=== PATIENT | male | born 1950 | race Caucasian/White ===

== ENCOUNTER → 2019-05-04 09:24 | Outpatient (BNVA) | payer MEDICARE, OTHER, SELFPAY | PROVIDERS: Visit Provider Family Medicine | DX: E78.2 Mixed hyperlipidemia (principal); E03.9 Hypothyroidism, unspecified; I10 Essential (primary) hypertension | CPT/HCPCS: 80053; 80061; 84443; 85025 ==

== ENCOUNTER → 2020-01-13 11:04 | Outpatient (BNVA) | payer MEDICARE, OTHER, SELFPAY | PROVIDERS: PCP Family Medicine; Visit Provider Nurse Practitioner Family | DX: Z11.59 Encounter for screening for other viral diseases (principal); Z20.828 Contact with and (suspected) exposure to other viral communicable diseases; J06.9 Acute upper respiratory infection, unspecified | CPT/HCPCS: 87635 ==

== ENCOUNTER → 2020-04-06 11:09 | Outpatient (BNVA) | payer MEDICARE, OTHER, SELFPAY | PROVIDERS: PCP Family Medicine; Visit Provider Family Medicine | DX: E78.2 Mixed hyperlipidemia (principal); I10 Essential (primary) hypertension; E03.9 Hypothyroidism, unspecified | CPT/HCPCS: 80053; 80061; 84443; 85025 ==

== ENCOUNTER → 2020-06-09 09:33 | Outpatient (BNVA) | payer MEDICARE, OTHER, SELFPAY | PROVIDERS: PCP Family Medicine; Visit Provider Family Medicine | DX: Z12.5 Encounter for screening for malignant neoplasm of prostate (principal); E03.9 Hypothyroidism, unspecified | CPT/HCPCS: 84443; G0103 ==

== ENCOUNTER → 2020-10-25 11:29 | Outpatient (BNVA) | payer MEDICARE, OTHER, SELFPAY | PROVIDERS: PCP Family Medicine; Visit Provider Family Medicine | DX: E03.9 Hypothyroidism, unspecified (principal); E78.2 Mixed hyperlipidemia; I10 Essential (primary) hypertension | CPT/HCPCS: 80053; 80061; 84443; 85025 ==

== ENCOUNTER → 2021-04-03 11:50 | Outpatient (BNVA) | payer OTHER, MEDICARE, SELFPAY | PROVIDERS: PCP Family Medicine; Visit Provider Family Medicine | DX: E78.2 Mixed hyperlipidemia (principal); E03.9 Hypothyroidism, unspecified; I10 Essential (primary) hypertension | CPT/HCPCS: 80053; 80061; 84443; 85025 ==

== ENCOUNTER → 2021-10-17 09:02 | Outpatient (BNVA) | payer OTHER, SELFPAY | PROVIDERS: PCP Family Medicine; Visit Provider Nurse Practitioner Family | DX: E78.2 Mixed hyperlipidemia (principal); E03.9 Hypothyroidism, unspecified; I10 Essential (primary) hypertension; R73.9 Hyperglycemia, unspecified; Z12.5 Encounter for screening for malignant neoplasm of prostate | CPT/HCPCS: 80053; 80061; 83036; G0103 ==

== ENCOUNTER 2022-04-13 11:33 | Emergency (ER) | payer MEDICARE, OTHER, SELFPAY ==
[2022-04-13 11:53] VITALS: BP 156/83; PULSE 81; RESP 16; TEMP 36.4; O2SAT 95
--- NOTE | 2022-04-13 12:36 | ED_ITS ---
HPI - Abdominal Pain General: Chief Complaint: Abdominal Pain Stated Complaint: abd pains and into lower back Time Seen by Provider: 04/13/22 12:28 History of Present Illness: 72-year-old male presents with just some not feeling good he reports he is got some abdominal discomfort but not really pain. A little bit of pain in his back more on the right than left. Reports he is cannot get comfortable. Has some nausea no vomiting or diarrhea. Reports that his throat her voice seems a little bit hoarse and just started. He denies any cough, shortness of breath, chest pain, fever. Associated Symptoms: Reports nausea; Denies constipation, diarrhea, dysuria, fever(s) and vomiting Review of Systems Const: Reports: malaise; Denies: fever(s) or fatigue ENMT: Reports: hoarseness; Denies: throat pain or ear or mastoid pain Card: Denies: chest pain, palpitations, irregular heart rhythm or lightheadedness Resp: Denies: dyspnea, productive cough or wheezing GI: Reports: nausea; Denies: abdominal pain, vomiting, diarrhea or constipation : Reports: flank pain; Denies: difficulty urinating, dysuria or urinary frequency Musc: Denies: neck pain Skin/Breast: Denies: rash or pruritus PFSH ED PFSH: Medical History 10 year risk of [place] or stroke 7.5% or greater calculates to 34%, high intensity statin recommended for risk reduction Acquired hypothyroidism Elevated LFTs Encounter for counseling for care management of patient with chronic conditions and complex health needs using nurse-based model Essential (primary) hypertension Fatty infiltration of liver Gall bladder polyp Hx of colonic polyps Mixed hyperlipidemia Stasis dermatitis of both legs Surgical History Hx of circumcision Hx of colonoscopy repeat 10 yrs Hx of cystoscopy Hx of hernia repair was an Hx of tonsillectomy Family History Family/Other Diabetes Stroke Glaucoma Hearing loss Social History Smoking and tobacco status: former smoker Alcohol intake: current Alcohol intake frequency: few times a month Lives independently: Yes Household members: spouse Housing: House Marital status: Current occupational status: retired History of recent travel: No Current gender identity: Male Physical Exam Const: COMMON NORMALS: no acute distress, patient oriented x3, no limitations and alert HENMT: COMMON NORMALS: hearing grossly normal bilaterally and moist oral mucous membranes Resp: COMMON NORMALS: normal respiratory effort, No retractions, No use of accessory muscles and clear to auscultation bilaterally AUSCULTATION: clear to auscultation bilaterally Cardio: COMMON NORMALS: regular rate, regular rhythm and Peripheral pulses 2+ throughout RATE: regular rate RHYTHM: regular rhythm PERIPHERAL PULSES: Peripheral pulses 2+ throughout GI: COMMON NORMALS: Soft to palpation and non-tender PALPATION: Yes Soft to palpation : BLADDER/KIDNEY EXAM: Yes CVA tenderness on the right (minimal ) Back/Pelvis: GENERAL BACK: Yes CVA tenderness Neuro: COMMON NORMALS: patient oriented x3, moves all extremities, no focal motor deficits and no sensory deficits noted SENSORIUM/ORIENTATION: Yes alert Psych: COMMON NORMALS: mental status grossly normal, Normal thought process present, normal affect and speech normal SPEECH: Yes normal speech THOUGHT PROCESS: Normal thought process present Course Vital Signs: Vital signs: Vital Signs Temperature 97.6 F 04/13/22 11:53 Pulse Rate 78 04/13/22 15:10 Respiratory Rate 14 04/13/22 15:10 Blood Pressure 157/73 04/13/22 15:10 Pulse Oximetry 95 04/13/22 15:10 Oxygen Delivery Me thod 04/13/22 13:56 MDM - Abdominal Pain Medical Decision Making Patient with elevated AST and ALT that is new. Patient's abdominal ultrasound shows some hepatic stenosis so small gallstones but no significant gallbladder disease. There is some mild sludge. He had normal alk phos, normal bilirubin and normal lipase. Patient is likely of viral hepatitis. He is negative for any hepatitis A, B or C. Patient with minimal elevated white count. Patient with no abdominal tenderness. I discussed with him the need to follow-up with his primary care provider next week for recheck of his labs and further evaluation as needed. Patient stable and discharged home Lab Data 04/13/22 12:45 04/13/22 12:45 Labs/Radiology: Radiology Impressions Abdomen Ultrasound 04/13/22 13:21 IMPRESSION: 1. Small gallstones and sludge in gallbladder 2. Hepatic steatosis 3. Normal right kidney Laboratory Results WBC 12.8 10^3/uL (4.0-10.0) H 04/13/22 12:45 RBC 4.78 10^6/uL (4.1-5.3) 04/13/22 12:45 Hgb 15.2 g/dL (11.7-16.6) 04/13/22 12:45 Hct 44.1 % (42.0-52.0) 04/13/22 12:45 MCV 92.3 fl (80-94) 04/13/22 12:45 MCH 31.8 pg (28.0-34.0) 04/13/22 12:45 MCHC 34.5 g/dL (30.0-36.0) 04/13/22 12:45 RDW 12.7 % (12.1-15.1) 04/13/22 12:45 Plt Count 362 10^3/cmm (130-400) 04/13/22 12:45 MPV 10.8 fL (7.4-10.4) H 04/13/22 12:45 Neut % (Auto) 85.5 % 04/13/22 12:45 Lymph % (Auto) 9.3 % 04/13/22 12:45 Jackson % (Auto) 4.4 % 04/13/22 12:45 Eos % (Auto) 0.0 % 04/13/22 12:45 Baso % (Auto) 0.5 % 04/13/22 12:45 Neut # (Auto) 10.95 10^3/uL (1.8-7.7) H 04/13/22 12:45 Lymph # (Auto) 1.2 10^3/uL (0.8-4.8) 04/13/22 12:45 Jackson # (Auto) 0.6 10^3/uL (0.2-0.9) 04/13/22 12:45 Eos # (Auto) 0.0 10^3/uL (0.0-0.8) 04/13/22 12:45 Baso # (Auto) 0.1 10^3/uL (0.0-0.1) 04/13/22 12:45 Nucleated RBC % (auto) 0 % 04/13/22 12:45 Nucleated RBCs # 0.0 /100WBC 04/13/22 12:45 Sodium 137 mmol/L (136-145) 04/13/22 12:45 Potassium 3.7 mmol/L (3.5-5.1) 04/13/22 12:45 Chloride 95 mmol/L (98-107) L 04/13/22 12:45 Carbon Dioxide 27 mmol/L (22-29) 04/13/22 12:45 Anion Gap 18.7 (5-19) 04/13/22 12:45 BUN 16 mg/dL (8-23) 04/13/22 12:45 Creatinine 0.7 mg/dL (0.7-1.2) 04/13/22 12:45 GFR Calculation 111.5 mL/min (90-130) 04/13/22 12:45 Glucose 251 mg/dL (65-115) H 04/13/22 12:45 Calculated Osmolality 294 mOsm/kg (285-295) 04/13/22 12:45 Calcium 9.5 mg/dL (8.5-10.5) 04/13/22 12:45 Total Bilirubin 1.2 mg/dL (0.15-1.2) 04/13/22 12:45 AST 550 U/L (0-40) H 04/13/22 12:45 ALT 469 U/L (0-41) H 04/13/22 12:45 Alkaline Phosphatase 106 U/L (40-130) 04/13/22 12:45 C-Reactive Protein 3.0 mg/L (0.0-4.9) 04/13/22 12:45 Total Protein 8.1 g/dL (6.6-8.7) 04/13/22 12:45 Albumin 4.8 g/dL (3.5-5.2) 04/13/22 12:45 Globulin 3.3 g/dL (1.3-4.6) 04/13/22 12:45 Lipase 25 U/L (13-60) 04/13/22 12:45 Urine Color Dark yellow (Yellow) 04/13/22 14:28 Urine Appearance Clear (CLEAR) 04/13/22 14: Urine pH 8 (5-7) H 04/13/22 14: Ur Specific [place] 1.015 (1.005-1.030) 04/13/22 14:28 Urine Protein Neg (Negative) 04/13/22 14:28 Urine Glucose (UA) 2+ (Normal) H 04/13/22 14:28 Urine Ketones Negative (Negative) 04/13/22 14:28 Urine Blood Neg (Negative) 04/13/22 14:28 Urine Nitrate Negative (Negative) 04/13/22 14:28 Urine Bilirubin Neg (Negative) 04/13/22 14:28 Prot Sulfosalicylic Acd Negative (Negative) 04/13/22 14:28 Urine Urobilinogen Norm mg/dL (Negative) 04/13/22 14:28 Ur Leukocyte Esterase Negative (Negative) 04/13/22 14:28 Hepatitis A IgM Ab Non-reactive (Nonreactive) 04/13/22 12:45 Hep Bs Antigen Non-reactive (Nonreactive) 04/13/22 12:45 Hep Bs Antibody 3.5 (11.5-1000) L 04/13/22 12:45 Hep B Core Total Ab Non-reactive (Nonreactive) 04/13/22 12:45 Hepatitis C Antibody Non-reactive (Nonreactive) 04/13/22 12:45 Influenza Type A Ag negative (Negative) 04/13/22 12:50 Influenza Type B Ag negative (Negative) 04/13/22 12:50 SARS-CoV-2 Ag (Rapid) negative (Negative) 04/13/22 12:50 Discharge Plan Discharge Patient Disposition: Home Clinical Impression: Liver enzyme elevation Condition: Stable Prescriptions: New ondansetron 4 mg tablet,disintegrating 4 mg PO TID PRN (Reason: nausea and vomiting) Qty: 20 0RF No Action amlodipine 10 mg tablet 10 mg PO DAILY Qty: 90 2RF atorvastatin 40 mg tablet 40 mg PO DAILY Qty: 90 2RF levothyroxine 175 mcg tablet 175 mcg PO DAILY Qty: 90 2RF lisinopril-hydrochlorothiazide 20-12.5 mg tablet 2 tab PO DAILY Qty: 180 2RF Discharge Orders: Discharge ED (Routine); Ordered 04/13/22 Ordered By: Ric Floyd Referrals: Jaymie Márquez MD [Primary Care Provider] - Discharge Diet: Usual diet Discharge Activity: Resume usual activity Patient Instructions: Opioid Safety, Pain Management, Viral Syndrome - Adult Activity Restrictions/Additional Instructions: Please follow-up with your primary care provider next week for recheck of your liver enzymes. Return to the ER with any concerns. Please do not use Tylenol until your liver enzymes are back to normal. If you develop worsening abdominal pain intractable nausea or vomiting please return to the ER. Coding Level of Care Code ED [employer] for Jacqueline Yang Exam Comprehensive
[2022-04-13 12:57] LABS: Basophils # 0.1 10^3/uL (0.0-0.1); Basophils % 0.5 %; Hematocrit 44.1 % (42.0-52.0); Hemoglobin 15.2 g/dL (11.7-16.6); Lymphocytes # 1.2 10^3/uL (0.8-4.8); Lymphocytes % 9.3 %; Mean Corpuscular HGB Conc 34.5 g/dL (30.0-36.0); Mean Corpuscular Hemoglobin 31.8 pg (28.0-34.0); Mean Corpuscular Volume 92.3 fl (80-94); Mean Platelet Volume 10.8 fL (7.4-10.4); Monocytes # 0.6 10^3/uL (0.2-0.9); Monocytes % 4.4 %; Neutrophils # 10.95 10^3/uL (1.8-7.7); Neutrophils % 85.5 %; Nucleated Red Blood Cells % 0 %; Platelet Count 362 10^3/cmm (130-400); Red Blood Count 4.78 10^6/uL (4.1-5.3); Red Cell Distribution Width 12.7 % (12.1-15.1); White Blood Count 12.8 10^3/uL (4.0-10.0)
[2022-04-13] MEDS: ketorolac 30 mg/mL INJ IVP (13:01)
[2022-04-13] MEDS: metoclopramide 5 mg/mL SDV 2 mL IVP (13:01)
[2022-04-13 13:18] LABS: Alanine Aminotransferase 469 U/L (0-41); Albumin Level 4.8 g/dL (3.5-5.2); Alkaline Phosphatase 106 U/L (40-130); Anion Gap 18.7 (5-19); Aspartate Amino Transferase 550 U/L (0-40); Blood Urea Nitrogen 16 mg/dL (8-23); Calcium 9.5 mg/dL (8.5-10.5); Carbon Dioxide 27 mmol/L (22-29); Chloride 95 mmol/L (98-107); Globulin 3.3 g/dL (1.3-4.6); Glomerular Filtration Rate 111.5 mL/min (90-130); Glucose 251 mg/dL (65-115); Lipase 25 U/L (13-60); Osmolality Calculated 294 mOsm/kg (285-295); Potassium 3.7 mmol/L (3.5-5.1); Sodium 137 mmol/L (136-145); Total Bilirubin 1.2 mg/dL (0.15-1.2); Total Protein 8.1 g/dL (6.6-8.7)
--- NOTE | 2022-04-13 13:21 | USR_ITS ---
PROCEDURE INFORMATION: Exam: US Abdomen, Limited; Right Upper Quadrant Exam date and time: 04/13/2022 2:00 PM Age: 72 years old Clinical indication: Abdominal pain; Acute; Additional info: Gallbladder, liver TECHNIQUE: Imaging protocol: Real time ultrasound of the abdomen with image documentation. Limited exam focused on the right upper quadrant. COMPARISON: US gall bladder [id number] 05/29/2018 10:12 AM FINDINGS: Liver: Diffuse increased echogenicity is seen consistent with hepatic steatosis. No masses. Gallbladder: Multiple small gallstones. There is a small volume of gallbladder sludge present. GB wall measures 2.4 mm . Biliary ducts: Normal. No stones. No dilation. Pancreas: Visualized pancreas is unremarkable. Right kidney: Normal. No mass. No hydronephrosis. 11.6 cm x 5.4 cm x 6.6 cm . Aorta: Abdominal aorta and IVC are unremarkable US/US abdomen limited [id number] IMPRESSION: 1. Small gallstones and sludge in gallbladder 2. Hepatic steatosis 3. Normal right kidney
[2022-04-13 13:40] LABS: Influenza A by IFA negative (Negative); Influenza B by IFA negative (Negative); SARS Covid-2 Antigen negative (Negative)
[2022-04-13 13:56] VITALS: BP 152/77; PULSE 81; RESP 14; O2SAT 97
[2022-04-13 14:11] LABS: Hepatitis A Antibody IgM Non-Reactive (Nonreactive); Hepatitis B Core AB, Total Non-Reactive (Nonreactive); Hepatitis B Surface AB 3.5 (11.5-1000); Hepatitis B Surface Antigen Non-Reactive (Nonreactive); Hepatitis C Virus Antibody Non-Reactive (Nonreactive)
[2022-04-13 15:05] LABS: Add Urine Microscopic? NO; Charge for UA Resulting for Rev
[2022-04-13 15:09] LABS: Protein Urine Neg (Negative); Specific Gravity, Urine 1.015 (1.005-1.030); Urine Appearance Clear (CLEAR); Urine Color Dark Yellow (Yellow); pH Urine 8 (5-7)
[2022-04-13 15:10] VITALS: BP 157/73; PULSE 78; RESP 14; O2SAT 95
[2022-04-13 15:10] LABS: Bilirubin Urine Neg (Negative); Blood Urine Neg (Negative); Glucose Urine UA 2+ (Normal); Ketones Urine Negative (Negative); Leukocyte Esterase Urine Negative (Negative); Nitrate Urine Negative (Negative); Sulfosalicylic Acid Urine Negative (Negative); Urobilinogen Urine Norm (Negative)
== END 2022-04-13 15:42 | disposition home or self-care (01) ==
PROVIDERS: Emergency Provider Student in an Organized Health Care Education/Training Program; PCP Family Medicine
DX: R74.8 Abnormal levels of other serum enzymes (principal); Z20.822 Contact with and (suspected) exposure to COVID-19; K80.20 Calculus of gallbladder without cholecystitis without obstruction; I10 Essential (primary) hypertension; E78.2 Mixed hyperlipidemia; Z87.891 Personal history of nicotine dependence
CPT/HCPCS: 76705; 80053; 81003; 83690; 85025; 86140; 86705; 86706; 86709; 86803; 87340; 87426; 87804; 96374; 96375; 99285; J1885; J2765

== ENCOUNTER → 2022-04-19 10:08 | Outpatient (BNVA) | payer MEDICARE, OTHER, SELFPAY | PROVIDERS: PCP Family Medicine; Visit Provider Family Medicine | DX: I10 Essential (primary) hypertension (principal); R73.9 Hyperglycemia, unspecified; E03.9 Hypothyroidism, unspecified; E78.2 Mixed hyperlipidemia; R74.8 Abnormal levels of other serum enzymes | CPT/HCPCS: 80053; 80061; 83036; 84443; 85025 ==

== ENCOUNTER → 2022-07-23 11:19 | Outpatient (BNVA) | payer MEDICARE, OTHER, SELFPAY | PROVIDERS: PCP Family Medicine; Visit Provider Family Medicine | DX: I10 Essential (primary) hypertension (principal); E03.9 Hypothyroidism, unspecified; E78.2 Mixed hyperlipidemia; R73.9 Hyperglycemia, unspecified | CPT/HCPCS: 80053; 80061; 83036; 84443; 85025 ==

== ENCOUNTER → 2022-12-24 11:29 | Outpatient (BNVA) | payer MEDICARE, OTHER, SELFPAY | PROVIDERS: PCP Family Medicine; Visit Provider Family Medicine | DX: E03.9 Hypothyroidism, unspecified (principal); E78.2 Mixed hyperlipidemia; I10 Essential (primary) hypertension; Z12.5 Encounter for screening for malignant neoplasm of prostate | CPT/HCPCS: 80053; 80061; 84443; 85025; G0103 ==

== ENCOUNTER → 2023-06-24 10:26 | Outpatient (BNVA) | payer MEDICARE, OTHER, SELFPAY | PROVIDERS: PCP Family Medicine; Visit Provider Family Medicine | DX: I10 Essential (primary) hypertension (principal); E78.2 Mixed hyperlipidemia; E03.9 Hypothyroidism, unspecified | CPT/HCPCS: 80053; 80061; 84443; 85025 ==

== ENCOUNTER → 2023-06-30 16:08 | Outpatient (BNVA) | payer MEDICARE, OTHER, SELFPAY | PROVIDERS: PCP Family Medicine; Visit Provider Family Medicine | DX: R73.9 Hyperglycemia, unspecified (principal) | CPT/HCPCS: 83036; 85025 ==

== ENCOUNTER → 2023-07-03 09:54 | Outpatient (BNVA) | payer MEDICARE, OTHER, SELFPAY | PROVIDERS: PCP Family Medicine; Visit Provider Family Medicine | DX: R73.9 Hyperglycemia, unspecified (principal) | CPT/HCPCS: 83036 ==

== ENCOUNTER → 2023-08-05 15:07 | Outpatient (BNVA) | payer MEDICARE, OTHER, SELFPAY | PROVIDERS: PCP Family Medicine; Visit Provider Family Medicine | DX: R53.83 Other fatigue (principal) | CPT/HCPCS: 82607; 83540; 84403; 85025 ==

== ENCOUNTER → 2023-10-22 14:50 | Outpatient (BNVA) | payer MEDICARE, OTHER, SELFPAY | PROVIDERS: PCP Family Medicine; Visit Provider Nurse Practitioner Family | DX: R50.9 Fever, unspecified (principal) | CPT/HCPCS: 87426 ==

== ENCOUNTER → 2024-01-15 11:20 | Outpatient (BNVA) | payer MEDICARE, OTHER, SELFPAY | PROVIDERS: PCP Family Medicine; Visit Provider Family Medicine | DX: E11.9 Type 2 diabetes mellitus without complications (principal) | CPT/HCPCS: 80048; 83036 ==

== ENCOUNTER → 2024-04-16 10:44 | Outpatient (BNVA) | payer MEDICARE, OTHER, SELFPAY | PROVIDERS: PCP Family Medicine; Visit Provider Family Medicine | DX: E11.9 Type 2 diabetes mellitus without complications (principal); R79.89 Other specified abnormal findings of blood chemistry | CPT/HCPCS: 80053; 80061; 82040; 82607; 83036; 84270; 84403; 84443; 85025 ==

== ENCOUNTER → 2024-04-29 13:37 | Outpatient (BNVA) | payer MEDICARE, OTHER, SELFPAY | PROVIDERS: PCP Family Medicine; Visit Provider Family Medicine | DX: R79.89 Other specified abnormal findings of blood chemistry (principal) | CPT/HCPCS: 82040; 84270; 84403 ==

== ENCOUNTER → 2024-05-13 11:44 | Outpatient (BNVA) | payer MEDICARE, OTHER, SELFPAY | PROVIDERS: PCP Family Medicine; Visit Provider Nurse Practitioner Family | DX: R79.89 Other specified abnormal findings of blood chemistry (principal) | CPT/HCPCS: 82040; 84270; 84403 ==

== ENCOUNTER → 2024-06-30 11:02 | Outpatient (BNVA) | payer MEDICARE, OTHER, SELFPAY | PROVIDERS: PCP Family Medicine; Visit Provider Family Medicine | DX: I10 Essential (primary) hypertension (principal); E03.9 Hypothyroidism, unspecified | CPT/HCPCS: 84443 ==

== ENCOUNTER → 2024-10-14 12:45 | Outpatient (BNVA) | payer MEDICARE, OTHER, SELFPAY | PROVIDERS: PCP Family Medicine; Visit Provider Family Medicine | DX: I10 Essential (primary) hypertension (principal); E78.2 Mixed hyperlipidemia; E11.9 Type 2 diabetes mellitus without complications; E03.9 Hypothyroidism, unspecified; R79.89 Other specified abnormal findings of blood chemistry; K76.0 Fatty (change of) liver, not elsewhere classified | CPT/HCPCS: 80053; 80061; 83036; 84403; 84443; 85025 ==